=== PATIENT | male | born 1950 | race Asian ===

== ENCOUNTER 2021-08-27 06:53 | Emergency (ER) | payer MEDICAID ==
[~2021-08-27] VITALS: Ht 165.1 cm; Wt 59.3 kg
[2021-08-27 08:35] LABS: BASOPHILS % 0.5 % (0.0-2.0); EOSINOPHILS % 0.8 % (0.0-5.0); HEMATOCRIT. 39.1 % (42.0-52.0); LYMPHOCYTES % 18.3 % (20.0-50.0); MEAN CORPUSCULAR HEMOGLOBIN 30.2 pg (28.0-32.0); MEAN CORPUSCULAR VOLUME 90.5 fL (80.0-94.0); MONOCYTES % 5.4 % (2.0-8.0); PLATELET 206 x1000/uL (130-400); RED BLOOD CELL COUNT 4.32 mill/uL (4.7-6.1); RED CELL DISTRIBUTION WIDTH 13.8 % (11.6-14.6)
[2021-08-27] MEDS ORDERED: IOHEXOL-350 100 ML BOTTLE ONE (08:44)
[2021-08-27 09:40] LABS: CHLORIDE 103 mEq/L (98-107)
[2021-08-27 09:48] LABS: ETHANOL BLOOD < 10 mg/dL
[2021-08-27 11:52] VITALS: BP 138/86
== END 2021-08-27 19:40 | disposition home or self-care (01) ==
LOC: ER 07:43
DX: S00.01XA Abrasion of scalp, initial encounter (principal); H57.02 Anisocoria; F20.9 Schizophrenia, unspecified; F31.9 Bipolar disorder, unspecified; J44.9 Chronic obstructive pulmonary disease, unspecified; F03.90 Unspecified dementia, unspecified severity, without behavioral disturbance, psychotic disturbance, mood disturbance, and anxiety; W01.0XXA Fall on same level from slipping, tripping and stumbling without subsequent striking against object, initial encounter; Y93.89 Activity, other specified; Y92.128 Other place in nursing home as the place of occurrence of the external cause
CPT/HCPCS: 36415; 70450; 70496; 70498; 71045; 80053; 80320; 83605; 84484; 85025; 93005; 99291; Q9967; G0480